=== PATIENT | male | born 1950 | race Asian ===

== ENCOUNTER 2018-12-14 14:56 | Emergency (ER) | payer MEDICARE, OTHER ==
[2018-12-14] MEDS: NICARDipine HCL 30 MG CAPSULE PO (19:51)
== END 2018-12-14 20:41 | disposition home or self-care (01) ==
LOC: E/R 14:56
DX: R09.81 Nasal congestion (principal); I10 Essential (primary) hypertension; R13.12 Dysphagia, oropharyngeal phase; R40.2142 Coma scale, eyes open, spontaneous, at arrival to emergency department; R40.2362 Coma scale, best motor response, obeys commands, at arrival to emergency department; R40.2252 Coma scale, best verbal response, oriented, at arrival to emergency department; Z87.891 Personal history of nicotine dependence
CPT/HCPCS: 99283